=== PATIENT | male | born 1985 | race African-American/Black ===

== ENCOUNTER 2017-05-28 09:35 | Emergency (ER) | payer SELFPAY ==
[~2017-05-28] VITALS: Ht 182.9 cm; Wt 142.8 kg
[~2017-05-28 09:35] MED LIST: CLEOCIN300 MG PO; VICODIN,LORT1 TABLET PO
[2017-05-28 09:44] VITALS: BP 143/102
[2017-05-28] MEDS ORDERED: PEN-VEE K,VEET500 MG PO (10:28)
[2017-05-28] MEDS ORDERED: NAPROSYN500 MG PO (10:28)
[2017-05-28] MEDS ORDERED: ULTRAM50 MG PO (10:29)
== END 2017-05-28 10:55 | disposition home or self-care (01) ==
LOC: EME 09:35
DX: K02.9 Dental caries, unspecified (principal); K04.7 Periapical abscess without sinus; F17.200 Nicotine dependence, unspecified, uncomplicated
CPT/HCPCS: 99281; 99283

== ENCOUNTER 2017-09-15 12:29 | Emergency (ER) | payer BC ==
[~2017-09-15] VITALS: Ht 182.9 cm; Wt 142.9 kg
[~2017-09-15 12:29] MED LIST changes: +NAPROSYN500 MG PO; +PEN-VEE K,VEET500 MG PO; +ULTRAM50 MG PO
[2017-09-15 14:37] LABS: HEMATOCRIT 48.7 % (38.0-50.0); HEMOGLOBIN 16.8 G/DL (12.5-16.6); MCH 31.2 PG (29.0-34.0); MCHC 34.5 G/DL (30.0-36.0); MCV 90.4 FL (86-99); PLATELET COUNT 179 K/uL (156-360); RBC DIS.WIDTH-CV 12.8 % (11.8-14.6); RBC DIS.WIDTH-SD 42.5 % (39-53); RED BLOOD COUNT 5.39 M/uL (4.00-5.50); WHITE BLOOD COUNT 11.9 K/uL (4.1-10.2)
[2017-09-15 14:49] LABS: CHLORIDE 106 mEq/L (99-109); POTASSIUM 3.9 mEq/L (3.7-5.4); SODIUM 141 mEq/L (136-147)
[2017-09-15 14:50] LABS: GLUCOSE 103 mg/dL (70-99)
[2017-09-15 14:54] LABS: CREATININE 1.1 mg/dL (0.6-1.3); GFR ESTIMATE (CALCULATED) > 59 mL/min/ (58.99-99999)
[2017-09-15 14:55] LABS: UREA NITROGEN (BUN) 12 mg/dL (9-23)
[2017-09-15] MEDS ORDERED: ANUSOL HC,ANUCO25 MG PR (15:36)
[2017-09-15 15:57] VITALS: BP 169/107
== END 2017-09-15 15:57 | disposition home or self-care (01) ==
LOC: EME 12:29
DX: K64.4 Residual hemorrhoidal skin tags (principal); F17.200 Nicotine dependence, unspecified, uncomplicated
CPT/HCPCS: 80048; 85027; 86850; 86900; 86901; 99281; 99284